=== PATIENT | male | born 1940 | race Caucasian/White ===

== ENCOUNTER 2017-12-20 08:21 | Inpatient (IN) | payer MEDICARE, OTHER ==
[~2017-12-20] VITALS: Ht 177.8 cm; Wt 87.2 kg
[2017-12-20] MEDS: CLINDAMYCIN 600MG IV 50 ML IV SCH (00:30)
[2017-12-20] MEDS ORDERED: SODIUM CHLORIDE 0.9% 1,000 ML IV ONE ×3 (08:49→09:07)
[2017-12-20 09:11] LABS: Basophils # (auto) 0.1 uL; Basophils % (auto) 0.7 % (0.0-2.0); Eosinophils # (auto) 0.5 uL; Eosinophils % (auto) 4.7 % (0.0-7.0); Hematocrit 35.8 % (41.0-53.0); Hemoglobin 11.4 g/dL (13.5-17.5); Lymphocytes # (auto) 1.7 uL; Lymphocytes % (auto) 15.2 % (10.0-50.0); Mean Corpuscular Volume 93.7 fL (80.0-100.0); Monocytes # (auto) 0.8 uL; Monocytes % (auto) 6.8 % (0.0-12.0); Neutrophils # (auto) 8.1 uL; Neutrophils % (auto) 72.6 % (37.0-80.0); Platelet Count (auto) 180 10^3/uL (140-450); Red Blood Cells 3.82 10^6/uL (4.5-5.90); White Blood Cell 11.2 10^3/uL (4.4-10.8)
[2017-12-20 09:27] LABS: Albumin 2.5 g/dL (3.4-5.0); BUN/Creatinine Ratio 15.9; Calcium 8.4 mg/dL (8.5-10.1); Potassium 3.3 mmol/L (3.5-5.1)
[2017-12-20 09:32] LABS: Bilirubin, Total 0.4 mg/dL (0.2-1.0); Total Protein 5.6 g/dL (6.4-8.2)
[2017-12-20 09:55] LABS: INR 1.02 (0.9-1.15); Partial Thromboplastin Time 20.6 sec (23.78-33.04); Prothrombin Time 10.9 sec (9.27-12.13)
[2017-12-20] MEDS ORDERED: POTASSIUM CHL 20MEQ/100ML 100 ML IV ONE (10:30)
[2017-12-20] MEDS ORDERED: ACETAMINOPHEN 500 MG TAB PO PRN (11:00)
[2017-12-20] MEDS ORDERED: MORPHINE SULFATE 8mg/ml INJ SDV IV PRN ×2 (11:00)
[2017-12-20] MEDS ORDERED: HYDROcodone-ACET 5/325MG TAB PO PRN (11:00)
[2017-12-20] MEDS ORDERED: PROMETHAZINE HCL 25 MG/ML 1ML IV PRN (11:00)
[2017-12-20] MEDS ORDERED: PANTOPRAZOLE 40 MG/10 ML VIAL IV ONE (11:00)
[2017-12-20] MEDS ORDERED: NITROGLYCERIN 0.4 MG SL TAB SL PRN (11:00)
[2017-12-20] MEDS ORDERED: SODIUM CHLORIDE 0.9% 500 ML IV ONE (11:00)
[2017-12-20] MEDS ORDERED: TEMAZEPAM 15 MG CAP PO PRN (11:00)
[2017-12-20] MEDS ORDERED: cefTRIAXone 1GM/10ml IVPUSH 10 ML IV ONE (11:00)
[2017-12-20] MEDS ORDERED: LORazepam 0.5 MG TAB PO PRN (11:00)
[2017-12-20 11:34] LABS: CRP High Sensitivity 2.71 mg/dL (< 0.3)
[2017-12-20] MEDS: SODIUM CHLORIDE 0.9% 1,000 ML IV SCH (12:10)
[2017-12-20 12:12] LABS: Hematocrit 36.3 % (41.0-53.0); Hemoglobin 11.9 g/dL (13.5-17.5)
[2017-12-20] MEDS: metroNIDAZOLE 500MG/100ML 100 ML IV SCH ×2 (12:30→18:24)
[2017-12-20] MEDS ORDERED: MET25T (15:03)
[2017-12-20] MEDS ORDERED: BUME1TAB (15:03)
[2017-12-20] MEDS ORDERED: PRAV20TA3 (15:03)
[2017-12-20] MEDS ORDERED: FURO40TA4 (15:03)
[2017-12-20] MEDS ORDERED: PANT40T (15:03)
[2017-12-20] MEDS ORDERED: CARV3.1240 (15:03)
[2017-12-20] MEDS ORDERED: CARBIDOPA-LEVODOPA (15:03)
[2017-12-20] MEDS ORDERED: PRAVASTATIN (15:03)
[2017-12-20] MEDS: BOOST 8 ounces PO SCH (18:36)
[2017-12-20 19:41] LABS: Hematocrit 37.8 % (41.0-53.0); Hemoglobin 12.2 g/dL (13.5-17.5)
[2017-12-21] MEDS: SODIUM CHLORIDE 0.9% 1,000 ML IV SCH ×3 (00:30→17:53)
[2017-12-21 02:13] LABS: Hematocrit 35.2 % (41.0-53.0); Hemoglobin 11.8 g/dL (13.5-17.5)
[2017-12-21] MEDS: CLINDAMYCIN 600MG IV 50 ML IV SCH ×2 (06:00→14:16)
[2017-12-21 06:40] LABS: Basophils # (auto) 0.1 uL; Basophils % (auto) 0.9 % (0.0-2.0); Eosinophils # (auto) 0.5 uL; Eosinophils % (auto) 4.8 % (0.0-7.0); Hematocrit 33.1 % (41.0-53.0); Hemoglobin 11.3 g/dL (13.5-17.5); Lymphocytes # (auto) 0.8 uL; Lymphocytes % (auto) 8.3 % (10.0-50.0); Mean Corpuscular Hemoglobin 31.3 pg (28.0-32.0); Mean Corpuscular Hgb Conc. 34.1 g/dL (32.0-36.0); Mean Corpuscular Volume 91.7 fL (80.0-100.0); Monocytes # (auto) 0.5 uL; Neutrophils # (auto) 7.7 uL; Platelet Count (auto) 183 10^3/uL (140-450); Red Blood Cells 3.61 10^6/uL (4.5-5.90); White Blood Cell 9.6 10^3/uL (4.4-10.8)
[2017-12-21 07:02] LABS: Albumin 2.6 g/dL (3.4-5.0); BUN/Creatinine Ratio 14.1; Bilirubin, Total 0.3 mg/dL (0.2-1.0); Calcium 8.3 mg/dL (8.5-10.1); Potassium 3.9 mmol/L (3.5-5.1); Total Protein 5.6 g/dL (6.4-8.2)
[2017-12-21] MEDS: BOOST 8 ounces PO SCH ×3 (08:00→17:54)
[2017-12-21] MEDS: cefTRIAXone 1GM/10ml IVPUSH 10 ML IV SCH (09:02)
[2017-12-21] MEDS: PANTOPRAZOLE 40 MG/10 ML VIAL IV SCH (10:14)
[2017-12-21 17:00] VITALS: BP 111/58
[2017-12-21] MEDS ORDERED: ASPI-492 PO (17:33)
[2017-12-21] MEDS ORDERED: ALPR0.5T7 PO (17:33)
[2017-12-21] MEDS ORDERED: CLOP75TA28 PO (17:33)
[2017-12-21] MEDS ORDERED: PAR20T PO (17:38)
[2017-12-21] MEDS ORDERED: FLUT1INH6 IN (17:38)
[2017-12-21] MEDS: ATORVASTATIN 20 MG TAB PO SCH (21:56)
[2017-12-21] MEDS: CARVEDILOL 3.125 MG TAB PO SCH (21:56)
[2017-12-21 22:00] VITALS: BP 117/62
[2017-12-21] MEDS: METOPROLOL TARTRATE 25 MG TAB PO SCH (23:28)
[2017-12-22] MEDS: SODIUM CHLORIDE 0.9% 1,000 ML IV SCH (04:41)
[2017-12-22 05:00] VITALS: BP 113/65
[2017-12-22 06:36] LABS: Basophils # (auto) 0.1 uL; Basophils % (auto) 1.1 % (0.0-2.0); Eosinophils # (auto) 0.4 uL; Eosinophils % (auto) 4.1 % (0.0-7.0); Hematocrit 31.9 % (41.0-53.0); Lymphocytes # (auto) 1.1 uL; Lymphocytes % (auto) 12.8 % (10.0-50.0); Mean Corpuscular Hemoglobin 31.7 pg (28.0-32.0); Mean Corpuscular Hgb Conc. 34.4 g/dL (32.0-36.0); Mean Corpuscular Volume 92.1 fL (80.0-100.0); Monocytes # (auto) 0.6 uL; Neutrophils # (auto) 6.7 uL; Platelet Count (auto) 176 10^3/uL (140-450); Red Blood Cells 3.47 10^6/uL (4.5-5.90); Red Cell Distribution Width 15.2 % (11.8-14.3); White Blood Cell 8.9 10^3/uL (4.4-10.8)
[2017-12-22 06:47] LABS: Albumin 2.5 g/dL (3.4-5.0); BUN/Creatinine Ratio 10.8; Calcium 8.6 mg/dL (8.5-10.1); Potassium 3.8 mmol/L (3.5-5.1)
[2017-12-22 06:50] LABS: Bilirubin, Total 0.4 mg/dL (0.2-1.0); Total Protein 5.4 g/dL (6.4-8.2)
[2017-12-22 07:25] LABS: Urine Bacteria NONE SEEN /hpf (None Seen); Urine Blood Negative /uL (Negative); Urine Specific Gravity 1.012 (1.001-1.035); Urine WBC 1 /hpf (0 - 3)
[2017-12-22 08:44] VITALS: BP 133/69
[2017-12-22] MEDS: BOOST 8 ounces PO SCH ×3 (08:59→17:51)
[2017-12-22] MEDS: cefTRIAXone 1GM/10ml IVPUSH 10 ML IV SCH (09:11)
[2017-12-22] MEDS ORDERED: BUMETANIDE 1 MG TAB PO SCH (10:00)
[2017-12-22] MEDS ORDERED: FUROSEMIDE 20 MG/2 ML VIAL IV SCH (10:00)
[2017-12-22] MEDS: PANTOPRAZOLE 40 MG/10 ML VIAL IV SCH (10:29)
[2017-12-22] MEDS: CARVEDILOL 3.125 MG TAB PO SCH ×2 (10:29→22:06)
[2017-12-22] MEDS: METOPROLOL TARTRATE 25 MG TAB PO SCH ×2 (10:30→23:54)
[2017-12-22 13:37] VITALS: BP 91/51
[2017-12-22 21:52] VITALS: BP 106/57
[2017-12-22] MEDS: ATORVASTATIN 20 MG TAB PO SCH (22:06)
[2017-12-23 04:38] VITALS: BP 117/16
[2017-12-23 06:51] LABS: Basophils # (auto) 0.1 uL; Basophils % (auto) 1.2 % (0.0-2.0); Eosinophils # (auto) 0.6 uL; Eosinophils % (auto) 6.1 % (0.0-7.0); Hematocrit 32.9 % (41.0-53.0); Hemoglobin 11.2 g/dL (13.5-17.5); Lymphocytes # (auto) 1.6 uL; Lymphocytes % (auto) 16.6 % (10.0-50.0); Mean Corpuscular Hemoglobin 31.3 pg (28.0-32.0); Monocytes # (auto) 0.7 uL; Monocytes % (auto) 7.1 % (0.0-12.0); Neutrophils # (auto) 6.7 uL; Nucleated Red Blood Cells % 0.1 %; Platelet Count (auto) 187 10^3/uL (140-450); Red Blood Cells 3.58 10^6/uL (4.5-5.90); White Blood Cell 9.8 10^3/uL (4.4-10.8)
[2017-12-23 07:11] LABS: Albumin 2.6 g/dL (3.4-5.0); BUN/Creatinine Ratio 10.9; Bilirubin, Total 0.3 mg/dL (0.2-1.0); Calcium 8.6 mg/dL (8.5-10.1); Potassium 3.8 mmol/L (3.5-5.1); Total Protein 5.5 g/dL (6.4-8.2)
[2017-12-23] MEDS: BOOST 8 ounces PO SCH ×2 (08:27→12:03)
[2017-12-23 09:34] VITALS: BP 130/66
[2017-12-23] MEDS: cefTRIAXone 1GM/10ml IVPUSH 10 ML IV SCH (09:36)
[2017-12-23] MEDS: METOPROLOL TARTRATE 25 MG TAB PO SCH (10:00)
[2017-12-23] MEDS: CARVEDILOL 3.125 MG TAB PO SCH (10:00)
[2017-12-23] MEDS: PANTOPRAZOLE 40 MG/10 ML VIAL IV SCH (10:00)
[2017-12-23 12:44] VITALS: BP 108/50
[2017-12-23 13:13] VITALS: BP 90/60
== END 2017-12-23 14:50 | disposition home or self-care (01) | DRG 314 ==
LOC: ER 08:21 → EDUNIT# 08:21 → EDAGE 08:21 → OVERFLOW 08:22 → TELE-WESTW 12-21 15:19
PROVIDERS: ADMIT Internal Medicine; ATTEND Internal Medicine
DX: I95.9 Hypotension, unspecified (principal); G93.41 Metabolic encephalopathy; N17.9 Acute kidney failure, unspecified; I13.0 Hypertensive heart and chronic kidney disease with heart failure and stage 1 through stage 4 chronic kidney disease, or unspecified chronic kidney disease; N39.0 Urinary tract infection, site not specified; L97.529 Non-pressure chronic ulcer of other part of left foot with unspecified severity; I50.9 Heart failure, unspecified; I25.10 Atherosclerotic heart disease of native coronary artery without angina pectoris; K57.30 Diverticulosis of large intestine without perforation or abscess without bleeding; N18.3 Chronic kidney disease, stage 3 (moderate); I71.4 Abdominal aortic aneurysm, without rupture; E87.6 Hypokalemia; E86.0 Dehydration; D64.9 Anemia, unspecified; R55 Syncope and collapse; Z86.79 Personal history of other diseases of the circulatory system; Z95.1 Presence of aortocoronary bypass graft; Z88.5 Allergy status to narcotic agent
CPT/HCPCS: 36415; 70450; 71250; 74176; 78582; 80053; 80061; 81001; 82150; 82378; 82550; 82962; 83690; 83880; 84484; 85014; 85018; 85025; 85045; 85379; 85610; 85652; 85730; 86141; 87040; 87081; 87086; 93005; 93970; 96361; 96365; 96375; 97530; C9113; G0378; J3480; J3490